=== PATIENT | female | born 1985 | race Caucasian/White ===

== ENCOUNTER 2016-09-07 21:44 | Emergency (ER) | payer MEDICAID ==
[2016-09-07 21:55] VITALS: RESP 16; TEMP 98.2
--- NOTE | 2016-09-07 22:10 | EDPHY ---
H & P Stated Complaint: L arm infection HPI/ROS: HPI CHIEF COMPLAINT: Left arm wound HISTORY OF PRESENT ILLNESS: This patient very pleasant 31-year-old female she has a significant past medical history for polysubstance abuse including IV heroin, IV methamphetamine, alcohol, presents emergency room with a wound to her left anterior cubital fossa region. Patient states that she had a strep infection after injecting IV methamphetamine she was hospitalized at [facility] for week around [place] time she was discharged August 25 she went to [place] for the holiday with a chronic left arm wound, she has been applying a dressing. She tells me she did see a wound doctor in [place] to have her laceration closed however they would not do it because it was at risk for infection. She tells me she sustained this wound because at [place] she had a deep left forearm abscess that they had to perform an I and D and left it open. She has been applying a dressing however she presents to the emergency room as she has some redness and she is concerned about infection. She tells me she did not complete her course of amoxicillin she was discharged on. Past Medical History: Staph infection, strep infection, multiple I and D, anxiety Past Surgical History: Multiple I and D's of superficial skin abscess Social History: History of IV heroin, alcohol, IV methamphetamine Family History: Noncontributory ROS REVIEW OF SYSTEMS: A comprehensive 10 point review of systems is otherwise negative aside from elements mentioned in the history of present illness. Exam Constitutional triage nursing summary reviewed, vital signs reviewed, awake/ alert. Eyes normal conjunctivae and sclera, EOMI, PERRLA. HENT normal inspection, atraumatic, moist mucus membranes, no epistaxis, neck supple/ no meningismus, no raccoon eyes. Respiratory clear to auscultation bilaterally, normal breath sounds, no respiratory distress, no wheezing. Cardiovascular rate normal, regular rhythm, no murmur, no edema, distal pulses normal. Gastrointestinal soft, non-tender, no rebound, no guarding, normal bowel sounds, no distension, no pulsatile mass. Genitourinary no CVA tenderness. Musculoskeletal no midline vertebral tenderness, full range of motion, no calf swelling, no tenderness of extremities, no meningismus, good pulses, neurovascularly intact. Skin left antecubital fossa: 4 cm incision wound that is healing by secondary intention with granulation tissue, there is no significant fluctuance, drainage , abscess, redness, minimal tenderness, no crepitus, pink, warm, & dry, no rash , Neurologic awake, alert and oriented x 3, AAOx3, moves all 4 extremities equally, motor intact, sensory intact, CN II-XII intact, normal cerebellar, normal vision, normal speech. Psychiatric normal mood/affect. Heme/Lymph/Immune no lymphadenopathy. Differential Diagnosis: Left forearm wound, healing left for room secondary tension, cellulitis, strep infection, MRSA infection, wound from I and D of abscess This patient has a wound that is healing by secondary intention, I do not see any signs of acute infection there is no palpable cord upper arm, her arm is neurovascular intact warm, good cap refill, good pulses. There is no fluctuance or pus coming from the wound is minimal red. Minimal tenderness on exam. I will place the patient on Keflex, refer her to wound care, I dressing will be placed. She understands return emergency room she develops any worsening symptoms includes worsening redness, drainage, fever, pain questions about her wound. Of note also patient is complaining of congestion I have ordered her dose of guaifenesin here. Source: Patient - Personal History LMP (Females 10-55): 15-21 Days Ago Current Tetanus/Diphtheria Vaccine: Yes Current Tetanus Diphtheria and Acellular Pertussis (TDAP): Yes - Medical/Surgical History Hx Asthma: No Hx Chronic Respiratory Disease: No Hx Diabetes: No Hx Cardiac Disease: No Hx Renal Disease: No Hx Cirrhosis: No Hx Alcoholism: Yes Hx HIV/AIDS: No Hx Splenectomy or Spleen Trauma: No Other PMH: staff infection R hand, Strep infection L arm, ETOH, ortho surgeries , appendectomy, drug use, RA - Social History Smoking Status: Current every day smoker Constitutional: Initial Vital Signs Temperature (C) 36.8 C 09/07/16 21:51 Heart Rate 87 09/07/16 21:51 Respiratory Rate 16 09/07/16 21:51 Blood Pressure 120/80 09/07/16 21:51 O2 Sat (%) 98 09/07/16 21:51 O2 Delivery Mode Room Air Allergies/Adverse Reactions: No Known Allergies Allergy (Unverified 09/07/16 21:50) Home Medications: Medication Instructions Recorded Ativan 09/07/16 Cephalexin [Keflex] 500 mg PO Q6H #28 cap 09/07/16 Guaifenesin [Guaifenesin ER] 600 mg PO BID #7 tab.er.12h 09/07/16 Zoloft 100mg (*) 09/07/16 Departure - Departure Disposition: Home, Routine, Self-Care Clinical Impression: Wound of left upper extremity Qualifiers: Encounter type: initial encounter Qualifier Code: (S41.102A) Unspecified open wound of left upper arm, initial encounter Condition: Good Instructions: Wound Infection (ED) Additional Instructions: 1. return emergency room if develops any worsening symptoms questions or concerns. 2.Please follow up with wound care. 3.Please take antibiotics as prescribed. 4 If you have a wound that has not begun to heal in two weeks, call the [facility] at [phone] or email [email or web address] and let the healing begin. Prescriptions: Guaifenesin [Guaifenesin ER] 600 mg PO BID #7 tab.er.12h Cephalexin [Keflex] 500 mg PO Q6H #28 cap
[2016-09-07] MEDS ORDERED: guaiFENesin 600 MG TAB.ER PO ONE (22:19)
[2016-09-07] MEDS ORDERED: CEPHALEXIN 500 MG CAP PO ONE (22:19)
[2016-09-07 22:36] VITALS: BP 120/85; PULSE 89; O2SAT 97
== END 2016-09-07 22:35 | disposition home or self-care (01) ==
DX: S41.102A Unspecified open wound of left upper arm, initial encounter (principal); F17.200 Nicotine dependence, unspecified, uncomplicated; X58.XXXA Exposure to other specified factors, initial encounter